=== PATIENT | male | born 1975 ===

== ENCOUNTER 2019-04-10 11:10 | Emergency (ER) | payer BC ==
[~2019-04-10] VITALS: Ht 175.3 cm; Wt 76.2 kg
[2019-04-10] MEDS ORDERED: DIOVAN40 MG PO (11:29)
== END 2019-04-10 18:31 | disposition home or self-care (01) ==
LOC: ER 11:10
DX: R42 Dizziness and giddiness (principal); R55 Syncope and collapse; E86.0 Dehydration